=== PATIENT | male | born 1960 | race Caucasian/White ===

== ENCOUNTER 2020-08-12 13:13 | Outpatient (CLI) | payer OTHER ==
[2020-08-12] MEDS ORDERED: GADOBUTROL 7.5 MMOL/7.5 ML VIAL ONE (13:37)
[2020-08-12] MEDS ORDERED: BUFFERED LIDOCAINE 10 ML SYRINGE ONE (13:37)
[2020-08-12] MEDS ORDERED: iohexoL-240 10 ML VIAL IVP ONE (14:19)
[2020-08-12] MEDS ORDERED: GADOBUTROL 7.5 MMOL/7.5 ML VIAL IVP ONE (14:20)
[2020-08-12] MEDS ORDERED: BUFFERED LIDOCAINE 10 ML SYRINGE IU ONE (14:21)
--- NOTE | 2020-08-12 14:57 | XRAY Report ---
PROCEDURE: Arthrogram Needle Placement INDICATIONS: PAIN IN RT KNEE CONTRAST: CONTRAST: omnipaque/gada FLUORO TIME: FLUORO TIME: 0.19 min and NUMBER IMAGES: 2 TECHNIQUE: The indications, alternatives, benefits, risks, and complications of the procedure were explained to the patient. Written informed consent was obtained and placed in the chart. The knee was examined f luoroscopically, and a site chosen for knee joint injection. The skin was prepped and draped in the usual fashion and 1% Lidocaine infiltrated from the skin down to the articular surface. A hypodermic needle was then introduced into the joint and iodinated contrast media was instilled to confirm the intra-articular needle tip placement. This was followed by approximately 50 mL dilute solution of a gadolinium containing MR contrast agent. The needle was removed and a bandage was applied. An Alonso w rap was then applied around the knee joint to keep the contrast from collecting in the suprapatellar recess. The patient experienced no complications throughout the procedure and left the fluoroscopic suite in no apparent distress. FINDINGS: Single fluoroscopic spot image demonstrates intra-articular location to injected iodinated contrast. IMPRESSION: Successful fluoroscopically guided administration of dilute Gadolinium solution into the knee joint f or MR arthrogram. Reviewed by: Brooklyn Paul MD on 08/12/2020 2:56 PM PST Approved by: Brooklyn Paul MD on 08/12/2020 2:56 PM PST Station ID: [id number]
--- NOTE | 2020-08-12 16:23 | MRI Report ---
PROCEDURE: Arthrogram Knee RT INDICATIONS: PAIN IN RT KNEE CONTRAST: 50 cc of diluted intra-articular gadolinium contrast. TECHNIQUE: After the administration of 50 mL of dilute intra-articular Gadolinium contrast, sagittal T1 spin ech o with fat saturation and PD fast spin echo with fat saturation, coronal T1 spin echo with and withou t fat saturation, coronal T2 fast spin echo with fat saturation, axial PD fast spin echo with fat sat uration through the knee. COMPARISON: Right knee MR dated 08/10/2015 FINDINGS: Image quality: Diagnostic. Menisci: There is suggestion of prior partial meniscectomy involving body and posterior horn of media l meniscus with slightly truncated appearance of posterior horn. There is signal abnormality and cont rast extension in posterior horn remnant of medial meniscus superior articulating surface best seen o n series 401 image 13 suggestive of recurrent tear. There is no focal lateral meniscal tear. The meni scal root ligaments appear intact. Cruciate ligaments: The anterior and posterior cruciate ligaments appear intact. Medial structures: The medial collateral ligament appears intact. The posterior oblique ligament, s emimembranosus tendon insertions, and oblique popliteal ligament, and meniscocapsular junction appear intact. Visualized portions of the pes anserinus tendons appear normal. No abnormal bursal fluid. Lateral structures: The lateral collateral ligament, long and short heads of the biceps femoris tend on appear intact. The popliteus tendon appears normal; the popliteofibular ligament appears intact. The posterosuperior and anteroinferior popliteomeniscal fascicles appear intact. The arcuate and fa bellofibular ligaments appear intact, around the lateral inferior geniculate artery. Iliotibial band appears normal. Anterior structures: The quadriceps and patellar tendons appear intact. Patellar alignment is luis l. No femoral trochlear dysplasia or ventral trochlear prominence. No edema in the infrapatellar fa t pad. Bones and cartilage: Moderate medial femoral tibial compartment osteoarthritis and moderate to high-g rade chondromalacia is seen. Articulating cartilages and lateral femoral tibial compartment and watters lofemoral compartment are grossly intact. No fracture or dislocation. Joint space: There is no gross intra-articular loose body. Small popliteal cyst is seen and measures up to 2.5 x 2.4 x 7 cm in size. Normal appearing synovial plicae are incidentally noted. No suspici ous soft tissue enhancement. IMPRESSION: 1. Suggestion of prior partial meniscectomy involving body and posterior horn of medial meniscus. Sug gestion of recurrent tear involving posterior horn remnant of medial meniscus extending to superior a rticulating surface. No evidence of focal lateral meniscal tear. 2. Cruciate ligaments are intact. 3. Moderate medial femoral tibial compartment osteoarthritis and moderate to high-grade chondromalaci a. No fracture or dislocation. 4. No gross intra-articular loose body. Popliteal cyst as above. Reviewed by: Evan Enciso MD on 08/12/2020 4:22 PM PST Approved by: Evan Enciso MD on 08/12/2020 4:22 PM PST Station ID: [id number]
== END 2020-08-12 13:14 | disposition home or self-care (01) ==
LOC: DI 13:13
PROVIDERS: ATTEND Family Medicine
DX: M17.11 Unilateral primary osteoarthritis, right knee (principal); M94.261 Chondromalacia, right knee
CPT/HCPCS: 27369; 73722; 77002; A9585; Q9966

== ENCOUNTER 2022-08-27 17:05 | Outpatient (CLI) | payer OTHER ==
--- NOTE | 2022-08-28 10:39 | MRI Report ---
PROCEDURE: SHOULDER WO - RT INDICATIONS: RIGHT SHOULDER PAIN TECHNIQUE: Noncontrast oblique coronal T2 fast spin echo with fat saturation, oblique sagittal T1 spin echo and T2 fast spin echo with fat saturation, axial T1 spin echo and T2 fast spin echo with fat saturation t hrough the shoulder. COMPARISON: None. FINDINGS: Image quality: Excellent. Rotator cuff: Prior rotator cuff tendon repair is seen with postsurgical changes seen in shoulder sof t tissue. Moderate grade articular and bursal surface partial-thickness tear involving distal suprasp inatus at their insertion on humeral head extending to muscular tendinous junction. Distal infraspina tus tendinosis and low-grade articular surface partial-thickness tear is also seen. Distal subscapula ris tendinosis is noted. No full-thickness rotator cuff tendon rupture. Very mild supraspinatus muscl e atrophy is seen on sagittal images. Bones and bursae: There is expected postsurgical widening of acromioclavicular joint. Moderate to sev ere glenohumeral joint osteoarthritic changes are noted with joint space narrowing, subchondral scler osis and inferior margin osteophyte formation. Postsurgical changes are noted in the greater tuberosi ty of humeral head. There is moderate to large amount of subacromial subdeltoid bursal fluid. There i s suggestion of intra-articular loose body within subacromial subdeltoid bursa lateral to the greater tuberosity of humeral head measures 1.1 x 0.5 x 1.8 cm in size. Capsule and soft tissues: The glenohumeral ligaments are intact. Signal abnormality and contour irreg ularity involving inferior labrum at 5 to 7:00 position is seen suggestive of extensive inferior labr al tear. The long head of the biceps tendon appears thickened with intrasubstance T2 hyperintense sig nal. The rotator interval appears normal, without fibrosis. The coracohumeral ligament is normal in thickness. IMPRESSION: 1. Prior rotator cuff tendon repair with post surgical changes. No no gross marrow edema. No acute fr acture or dislocation. Expected postsurgical widening of acromioclavicular joint. Moderate to severe glenohumeral joint osteoarthritis. Moderate to large amount of subacromial subdeltoid bursal fluid wi th suggestion of intra-articular loose body as above. 2. Moderate grade articular and bursal surface partial-thickness tear involving distal supraspinatus extending to muscular tendinous junction. Low-grade articular surface partial-thickness tear involvin g distal infraspinatus. Distal subscapularis tendinosis. No full-thickness rotator cuff tendon ruptur e. Very mild supraspinatus muscle atrophy. 3. Suggestion of extensive inferior labral tear at 5 to 7:00 position. 4. Proximal intra-articular portion of long head of biceps tendinosis and low-grade intrasubstance pa rtial thickness tear. Reviewed by: Evan Enciso MD on 08/28/2022 10:38 AM PST Approved by: Evan Enciso MD on 08/28/2022 10:38 AM PST Station ID: [id number]
== END 2022-08-27 17:06 | disposition home or self-care (01) ==
LOC: DI 17:05
PROVIDERS: ATTEND Student in an Organized Health Care Education/Training Program
DX: M19.011 Primary osteoarthritis, right shoulder (principal); M75.111 Incomplete rotator cuff tear or rupture of right shoulder, not specified as traumatic; S46.111A Strain of muscle, fascia and tendon of long head of biceps, right arm, initial encounter; M25.411 Effusion, right shoulder

== ENCOUNTER 2022-12-10 14:26 | Emergency (ER) | payer OTHER ==
[2022-12-10] MEDS ORDERED: methylPREDNISolone SUCCINATE 125 MG/2 ML VIAL IVP STA (14:46)
[2022-12-10] MEDS ORDERED: diphenhydrAMINE INJ 50 MG/ML VIAL IVP STA (14:46)
[2022-12-10] MEDS ORDERED: EPINEPHrine 1 MG/ML AMP IM STA (14:47)
--- NOTE | 2022-12-10 14:52 | ED Physician Documentation ---
History of Present Illness - Stated complaint Stated Complaint: ALLERGIC REACTION - Chief complaint Chief Complaint: Allergic Rx - Additonal information Additional information: 62-year-old male presents to the emergency department concerned that he is having allergic reaction. He underwent shoulder surgery at [facility] this morning with GET. When he was released from surgery and they had arrived home the patient began having difficulty talking and swallowing. His noted that his uvula is swollen thus they present here. No history of previous allergies or allergic reactions. Patient denies any cardiac history. He is uncomfortable laying back. He has no tongue, lip swelling noted Review of Systems Constitutional: reports: Reviewed and negative Throat: reports: Oral lesions / sores, Other (Mostly swollen and edematous uvula) Cardiac: reports: Reviewed and negative Respiratory: reports: Reviewed and negative GI: reports: Reviewed and negative : reports: Reviewed and negative Skin: reports: Reviewed and negative Musculoskeletal: reports: Joint pain (Right shoulder held and immobilized fixation) PD PAST MEDICAL HISTORY - Past Medical History Cardiovascular: None Respiratory: None Endocrine/Autoimmune: None GI: None : None HEENT: None Psych: None Musculoskeletal: Osteoarthritis Derm: None - Past Surgical History Ortho: Shoulder arthroplasty, Arthroscopic surgery, Other Derm: Other - Present Medications Home Medications: Ambulatory Orders Medication Instructions Recorded Confirmed Ibuprofen [Motrin] 800 mg PO Q8H PRN 09/10/15 09/10/15 Loratadine [Claritin] 10 mg PO DAILY 09/10/15 09/10/15 Multivitamin [Multivitamins] 1 each PO 09/10/15 09/10/15 predniSONE [Deltasone] 40 mg PO DAILY 3 Days #6 tablet 12/10/22 - Allergies Allergies/Adverse Reactions: Allergies Allergy/AdvReac Type Severity Reaction Status Date / Time No Known Drug Allergies Allergy Verified 12/10/22 14:30 PD ED PE EXPANDED - General General: Alert, No acute distress - HEENT HEENT: PERRL, Other (Grossly swollen uvula which was edematous and approximately 3-4 cm long) - Neck Neck: Other (Currently able to swallow and tolerate oral secretions). No: No tenderness, Soft tissue TTP - Cardiac Cardiac: Regular Rate, Radial strong equal - Respiratory Respiratory: Clear to ausultation haydee. No: Distress, Labored - Neuro Neuro: Alert and Oriented X 3, CNII-XII intact Results - Vitals Vitals: Vital Signs - 24 hr 12/10/22 12/10/22 12/10/22 14:31 15:29 15:52 Temperature 37.0 C Heart Rate 80 96 95 Respiratory 18 15 16 Rate Blood Pressure 150/90 H 148/87 H O2 Saturation 96 100 12/10/22 12/10/22 12/10/22 16:00 16:29 17:00 Temperature Heart Rate 112 H 89 85 Respiratory 24 21 12 Rate Blood Pressure 150/87 H 150/87 H 132/87 H O2 Saturation 99 96 95 12/10/22 17:51 Temperature 36.6 C Heart Rate 76 Respiratory 11 L Rate Blood Pressure 127/82 H O2 Saturation 97 Oxygen O2 Source Room air - EKG (time done) 1454 EKG releavant findings:: EKG personally interpreted by author of this note. Relevant findings are: Rate: Rate (enter#) (94) Rhythm: NSR [place]: Normal Intervals: Normal [place]. No: Prolonged QT Ischemia: Normal ST segments, Q waves Compare to prior EKG: Old EKG unavailable Computer interpretation: Agree with computer - Labs Labs: Laboratory Tests 12/10/22 12/10/22 15:00 15:34 WBC 12.3 H RBC 5.54 Hgb 16.4 Hct 47.9 MCV 86.5 MCH 29.6 MCHC 34.2 RDW 13.1 Plt Count 206 MPV 9.9 Neut # (Auto) 11.1 H Lymph # (Auto) 0.9 L Snyder # (Auto) 0.3 Eos # (Auto) 0.0 Baso # (Auto) 0.0 Absolute Nucleated RBC 0.00 Nucleated RBC % 0.0 Sodium 135 Potassium 3.2 L Chloride 102 Carbon Dioxide 21 Anion Gap 12.0 BUN 18 Creatinine 1.1 Estimated GFR (MDRD) 68 L Glucose 215 H Calcium 9.5 Total Bilirubin 1.1 H AST 37 ALT 29 Alkaline Phosphatase 105 Total Protein 7.5 Albumin 4.3 Globulin 3.2 Albumin/Globulin Ratio 1.3 Lipase 46 PD Medical Decision Making - ED course Complexity details: reviewed results, re-evaluated patient, considered differential, d/w patient ED course: 62-year-old male presents emergency department for evaluation of difficulty breathing and swallowing in the setting of uvular edema. He did undergo right shoulder surgery at [facility] this morning with general endotracheal anesthesia. He was discharged home and when he went home he began to eat a donut. Shortly thereafter he was having difficulty swallowing and had pain in the back of his throat. His looked and saw that he had a swollen uvula that she drives him here. On presentation he had a painful swallow and a grossly enlarged uvula that was edematous and measured probably about 4 cm. The distal tip of it was beefy red. He however had no other findings of airway compromise such as tongue lip or throat swelling. He was immediately administered 0.3 mg of epinephrine IM as well as given 125 of methylprednisolone IV and 25 mg of Benadryl. He also received inhaled epinephrine 1mml 5 mL nebulization. On reevaluation the edema has begun to resolve. The patient whereas initially needed to sit upright was able to lie supine. On final evaluation at 1830 the patient appeared markedly better. Per his he is speaking normally. He still has pain with swallow. On reevaluation the edema of the uvula has reduced by about 75%. At this time he is stable for discharge home. I am going to administer an additional 3 days of prednisone. He is also advised several more days of Benadryl. It is not clear at this time whether the uvular edema was an allergic reaction to anesthesia or possibly related to trauma from the endotracheal tube. He is encouraged to discuss this with his primary care providers. As well as to discuss this ED event in the future should he have any other Anesthesia episodes. He is discharged home in stable and improved condition with usual emergent return precautions discussed Departure - Departure Disposition: 01 Home, Self Care Clinical Impression: Uvular swelling Condition: Stable Record reviewed to determine appropriate education?: Yes Prescriptions: predniSONE [Deltasone] 40 mg PO DAILY 3 Days #6 tablet Comments: As discussed at the bedside you came into the emergency department because you developed some sudden swelling of your uvula after you had anesthesia for your surgery on your shoulder today. Anesthesia did include an oral endotracheal tube. You did develop something called uvular edema. This may be as a side effect or reaction to the anesthesia. However it could also be related to trauma possibly from the endotracheal tube. We did give you a single dose of epinephrine here in the emergency department as well as a dose of IV steroids and Benadryl. On reevaluation your swelling has started to improve. You are now able to lay back in bed and speak normally. In order to help continue managing this I would like you to take Benadryl 25 mg once or twice daily for the next several days. I have sent a prescription for prednisone and oral steroid to the [facility] in [place]. You should take this every day for the next 3 days. I expect over the next several days that the pain and swelling gets progressively better. However if at any point you are having worsening symptoms, develop any fevers, have an inability to tolerate your oral secretions or are labored with breath in any way do not hesitate to return immediately to the ER
[2022-12-10] MEDS ORDERED: EPINEPHrine 1 MG/ML AMP INH STA (14:57)
--- NOTE | 2022-12-10 15:00 | XRAY Report ---
PROCEDURE: Chest 1 View X-Ray INDICATIONS: chest pain TECHNIQUE: One view of the chest was acquired. COMPARISON: None. FINDINGS: Surgical changes and devices: Partially visualized left shoulder arthroplasty. Lungs and pleura: No pleural effusions or pneumothorax. Lungs are clear. Mediastinum: Mediastinal contours appear normal. Heart size is enlarged. Elevator right hemidiaphra gm. Bones and chest wall: No suspicious bony lesions. Overlying soft tissues appear unremarkable. IMPRESSION: No acute cardiopulmonary process. Reviewed by: Brooklyn Paul MD on 12/10/2022 2:59 PM PDT Approved by: Brooklyn Paul MD on 12/10/2022 2:59 PM PDT Station ID: [id number]
[2022-12-10 15:05] LABS: BASOPHILS % (AUTO) 0.2 %; HCT - HEMATOCRIT 47.9 % (42.0-52.0); HGB - HEMOGLOBIN 16.4 g/dL (14.0-18.0); LYMPHOCYTES # (AUTO) 0.9 10^3/uL (1.5-3.5); LYMPHOCYTES % (AUTO) 7.1 %; MEAN CORPUSCULAR HEMOGLOBIN 29.6 pg (27.0-31.0); MEAN CORPUSCULAR HGB CONC 34.2 g/dL (32.0-36.0); MEAN CORPUSCULAR VOLUME 86.5 fL (80.0-94.0); MEAN PLATELET VOLUME 9.9 fL (7.4-11.4); MONOCYTES # (AUTO) 0.3 10^3/uL (0.0-1.0); MONOCYTES % (AUTO) 2.3 %; NEUTROPHILS # (AUTO) 11.1 10^3/uL (1.5-6.6); NEUTROPHILS % (AUTO) 89.9 %; PLT - PLATELET COUNT 206 10^3/uL (130-450); RED BLOOD COUNT 5.54 10^6/uL (4.70-6.10); RED CELL DISTRIBUTION WIDTH 13.1 % (12.0-15.0); WHITE BLOOD COUNT 12.3 x10^3/uL (4.8-10.8)
--- OUTSIDE RECORDS SUMMARY | 2022-12-10 15:16 | EXTERNAL MEDICAL SUMMARY RPT | Continuity of Care Document ---
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 ( unknown) Medications date description facility 2022-10-07 00:00 Fluticasone Propionate [facility] 2022-12-10 00:[address] [facility] 2022-12-10 00:[address] [facility] 2022-10-07 00:[address] [facility] 2022-10-07 00:[address] [facility] 2022-10-07 00:[address] [facility] 2022-12-10 00:[address] [facility] 2022-12-10 00:00 Hydrocodone-Acetaminophen [facility] Problems date description facility 2022-12-10 06:25 Primary osteoarthritis, [facility] 2022-12-10 06:42 Primary osteoarthritis, [facility] 2022-12-10 06:48 Primary osteoarthritis, [facility] 2022-12-10 09:03 Primary osteoarthritis, [facility] 2022-12-10 10:37 Primary osteoarthritis, [facility] 2022-12-10 11:12 Primary osteoarthritis, [facility] 2022-12-10 11:22 Primary osteoarthritis, [facility] 2022-12-10 12:27 Primary osteoarthritis, [facility] Procedures date description facility 2022-12-10 00:00 Interscalene block [facility] 2022-12-10 00:00 XR shoulder right, 2+ views [facility] 2022-12-10 00:00 Total Shoulder Arthroplasty (Ri ght) [facility] Results/Labs test date author facility value unit interpretation Result panel 1 (unknown) (no date) (unknown) (unknown) (no value) (units unknown) (unknown) (unknown) (no date) (unknown) (unknown) (past 8 hours): (uni ts unknown) (unknown) (unknown) (no date) (unknown) (unknown) [id number] (units unknown) (unknown) (unknown) (no date) (unknown) (unknown) 12/10/22 (units unknown) (unknown) (unknown) (no date) (unknown) (unknown) 06:55 (units unknown) (unknown) (unknown) (no date) (unknown) (unknown) 62 yo M RHD he re today for right shoulder replacement. He states his symptoms (units unknown) (unknown) (unknown) (no date) (unknown) (unknown) Age/Sex: 62 / M (uni ts unknown) (unknown) (unknown) (no date) (unknown) (unknown) Allergies (units unknown) (unknown) (unknown) (no date) (unknown) (unknown) Allergy/AdvRea c Type Severity Reaction Status Date / Time (units unknown) (unknown) (unknown) (no date) (unknown) (unknown) Arthritis of r ight knee (units unknown) (unknown) (unknown) (no date) (unknown) (unknown) Blood Pressure 134/8 4 (units unknown) (unknown) (unknown) (no date) (unknown) (unknown) COVID-19 virus infection (2021) (units unknown) (unknown) (unknown) (no date) (unknown) (unknown) Chief complain t: Right TSA (units unknown) (unknown) (unknown) (no date) (unknown) (unknown) : 2 Acct:[id number] (units unknown) (unknown) (unknown) (no date) (unknown) (unknown) Date Patient S een: 12/10/22 (units unknown) (unknown) (unknown) (no date) (unknown) (unknown) Date of Servic e: 12/10/22 (units unknown) (unknown) (unknown) (no date) (unknown) (unknown) Exam (units unknown) (unknown) (unknown) (no date) (unknown) (unknown) History + Phys ical Report (units unknown) (unknown) (unknown) (no date) (unknown) (unknown) History of Pre sent Illness (units unknown) (unknown) (unknown) (no date) (unknown) (unknown) History of ank le surgery (units unknown) (unknown) (unknown) (no date) (unknown) (unknown) History (units unknown) (unknown) (unknown) (no date) (unknown) (unknown) Home Medicatio ns and Allergies (units unknown) (unknown) (unknown) (no date) (unknown) (unknown) Home Medications (un its unknown) (unknown) (unknown) (no date) (unknown) (unknown) Hx of arthrosc opy of left knee (units unknown) (unknown) (unknown) (no date) (unknown) (unknown) Hx of arthrosc opy of right knee (units unknown) (unknown) (unknown) (no date) (unknown) (unknown) Hx of plastic surger y (units unknown) (unknown) (unknown) (no date) (unknown) (unknown) Hx of repair o f right rotator cuff (units unknown) (unknown) (unknown) (no date) (unknown) (unknown) [address] [address] (units unknown) (unknown) (unknown) (no date) (unknown) (unknown) Medical Histor y (Updated 10/07/22 @ 13:11 by Zita Armas RN) (units unknown) (unknown) (unknown) (no date) (unknown) (unknown) Medication Instructions Recorded Confirmed Type (units unknown) (unknown) (unknown) (no date) (unknown) (unknown) Meds (units unknown) (unknown) (unknown) (no date) (unknown) (unknown) Narrative: (units unknown) (unknown) (unknown) (no date) (unknown) (unknown) No Known Drug Allergies Allergy Verified 12/10/22 06:48 (units unknown) (unknown) (unknown) (no date) (unknown) (unknown) Osteoarthritis (unit s unknown) (unknown) (unknown) (no date) (unknown) (unknown) Oxygen Deliver y Method Room Air (units unknown) (unknown) (unknown) (no date) (unknown) (unknown) PFSH (units unknown) (unknown) (unknown) (no date) (unknown) (unknown) Patient: Rudolph Pickering Jr MR#: M (units unknown) (unknown) (unknown) (no date) (unknown) (unknown) Provider: Drew Diaz MD (units unknown) (unknown) (unknown) (no date) (unknown) (unknown) Pulse Oximetry 97 (u nits unknown) (unknown) (unknown) (no date) (unknown) (unknown) Pulse Rate 73 (units unknown) (unknown) (unknown) (no date) (unknown) (unknown) Respiratory Rate 16 (units unknown) (unknown) (unknown) (no date) (unknown) (unknown) S/P right unicompartmental knee replacement (10/10/20) (units unknown) (unknown) (unknown) (no date) (unknown) (unknown) Seasonal allergies ( units unknown) (unknown) (unknown) (no date) (unknown) (unknown) Signed By: (units unknown) (unknown) (unknown) (no date) (unknown) (unknown) Sleep apnea (units unknown) (unknown) (unknown) (no date) (unknown) (unknown) Smoking Status : Never smoker (units unknown) (unknown) (unknown) (no date) (unknown) (unknown) Social History (units unknown) (unknown) (unknown) (no date) (unknown) (unknown) Status post keron mbar microdiscectomy (units unknown) (unknown) (unknown) (no date) (unknown) (unknown) Surgical Histo ry (Updated 10/07/22 @ 13:13 by Zita Armas RN) (units unknown) (unknown) (unknown) (no date) (unknown) (unknown) Temperature 97.2 F L (units unknown) (unknown) (unknown) (no date) (unknown) (unknown) Time Patient S een: 07:50 (units unknown) (unknown) (unknown) (no date) (unknown) (unknown) Vital Signs (units unknown) (unknown) (unknown) (no date) (unknown) (unknown) acetaminophen 500 mg tablet 1,000 mg PO DAILY PRN Pain 10/07/22 10/07/22 History (units unknown) (unknown) (unknown) (no date) (unknown) (unknown) alcohol intake : current (units unknown) (unknown) (unknown) (no date) (unknown) (unknown) fluticasone propionate 50 1 spray intranasal BID PRN 10/07/22 10/07/22 History (units unknown) (unknown) (unknown) (no date) (unknown) (unknown) have become wo rse over the last few weeks. (units unknown) (unknown) (unknown) (no date) (unknown) (unknown) household memb ers: spouse (units unknown) (unknown) (unknown) (no date) (unknown) (unknown) ibuprofen 400 mg tablet 800 mg PO DAILY 10/10/20 12/10/22 History (units unknown) (unknown) (unknown) (no date) (unknown) (unknown) loratadine 10 mg tablet 10 mg PO DAILY 10/07/22 10/07/22 History (units unknown) (unknown) (unknown) (no date) (unknown) (unknown) mcg/actuation nasal seasonal allergies (units unknown) (unknown) (unknown) (no date) (unknown) (unknown) sildenafil 50 mg tablet 50 mg PO DAILY PRN Sexual Activity 10/07/22 12/10/22 (units unknown) (unknown) (unknown) (no date) (unknown) (unknown) spray,suspension (un its unknown) (unknown) Result panel 2 (unknown) (no date) (unknown) (unknown) (no value) (units unknown) (unknown) (unknown) (no date) (unknown) (unknown) (past 8 hours): (uni ts unknown) (unknown) (unknown) (no date) (unknown) (unknown) [id number] (units unknown) (unknown) (unknown) (no date) (unknown) (unknown) 12/10/22 0756 (units unknown) (unknown) (unknown) (no date) (unknown) (unknown) 12/10/22 (units unknown) (unknown) (unknown) (no date) (unknown) (unknown) 06:55 (units unknown) (unknown) (unknown) (no date) (unknown) (unknown) 62 yo M RHD he re today for right shoulder replacement. He states his symptoms (units unknown) (unknown) (unknown) (no date) (unknown) (unknown) 62-year-old ma le with right shoulder primary glenohumeral arthritis (units unknown) (unknown) (unknown) (no date) (unknown) (unknown) Age/Sex: 62 / M (uni ts unknown) (unknown) (unknown) (no date) (unknown) (unknown) Allergies (units unknown) (unknown) (unknown) (no date) (unknown) (unknown) Allergy/AdvRea c Type Severity Reaction Status Date / Time (units unknown) (unknown) (unknown) (no date) (unknown) (unknown) Arthritis of r ight knee (units unknown) (unknown) (unknown) (no date) (unknown) (unknown) Assessment + P cedirc narrative: (units unknown) (unknown) (unknown) (no date) (unknown) (unknown) Assessment + Plan (u nits unknown) (unknown) (unknown) (no date) (unknown) (unknown) Assessment: 62-year-old male with right shoulder primary glenohumeral arthritis (units unknown) (unknown) (unknown) (no date) (unknown) (unknown) Blood Pressure 134/8 4 (units unknown) (unknown) (unknown) (no date) (unknown) (unknown) COVID-19 virus infection (2021) (units unknown) (unknown) (unknown) (no date) (unknown) (unknown) Cardiovascular : Palpable peripheral pulses extremities are warm and well (units unknown) (unknown) (unknown) (no date) (unknown) (unknown) Chief complain t: Right TSA (units unknown) (unknown) (unknown) (no date) (unknown) (unknown) : 2 Acct:[id number] (units unknown) (unknown) (unknown) (no date) (unknown) (unknown) Date Patient S een: 12/10/22 (units unknown) (unknown) (unknown) (no date) (unknown) (unknown) Date of Servic e: 12/10/22 (units unknown) (unknown) (unknown) (no date) (unknown) (unknown) ECG (units unknown) (unknown) (unknown) (no date) (unknown) (unknown) Exam Narrative: (uni ts unknown) (unknown) (unknown) (no date) (unknown) (unknown) Exam (units unknown) (unknown) (unknown) (no date) (unknown) (unknown) HEENT: Head atraumatic eyes anicteric moist mucous membranes (units unknown) (unknown) (unknown) (no date) (unknown) (unknown) He agreed and expressed understanding with these risks and wished to go forward (units unknown) (unknown) (unknown) (no date) (unknown) (unknown) History + Phys ical Report (units unknown) (unknown) (unknown) (no date) (unknown) (unknown) History of Pre sent Illness (units unknown) (unknown) (unknown) (no date) (unknown) (unknown) History of ank le surgery (units unknown) (unknown) (unknown) (no date) (unknown) (unknown) History (units unknown) (unknown) (unknown) (no date) (unknown) (unknown) Home Medicatio ns and Allergies (units unknown) (unknown) (unknown) (no date) (unknown) (unknown) Home Medications (un its unknown) (unknown) (unknown) (no date) (unknown) (unknown) Hx of arthrosc opy of left knee (units unknown) (unknown) (unknown) (no date) (unknown) (unknown) Hx of arthrosc opy of right knee (units unknown) (unknown) (unknown) (no date) (unknown) (unknown) Hx of plastic surger y (units unknown) (unknown) (unknown) (no date) (unknown) (unknown) Hx of repair o f right rotator cuff (units unknown) (unknown) (unknown) (no date) (unknown) (unknown) Impression: (units unknown) (unknown) (unknown) (no date) (unknown) (unknown) [address] [address] (units unknown) (unknown) (unknown) (no date) (unknown) (unknown) Medical Histor y (Updated 10/07/22 @ 13:11 by Zita Armas RN) (units unknown) (unknown) (unknown) (no date) (unknown) (unknown) Medication Instructions Recorded Confirmed Type (units unknown) (unknown) (unknown) (no date) (unknown) (unknown) Meds (units unknown) (unknown) (unknown) (no date) (unknown) (unknown) Musculoskeleta l: Exam of right upper extremity demonstrates limited range of (units unknown) (unknown) (unknown) (no date) (unknown) (unknown) Narrative (units unknown) (unknown) (unknown) (no date) (unknown) (unknown) Narrative: (units unknown) (unknown) (unknown) (no date) (unknown) (unknown) Neuro: No acut e deficits (units unknown) (unknown) (unknown) (no date) (unknown) (unknown) No Known Drug Allergies Allergy Verified 12/10/22 06:48 (units unknown) (unknown) (unknown) (no date) (unknown) (unknown) Objective (units unknown) (unknown) (unknown) (no date) (unknown) (unknown) Osteoarthritis (unit s unknown) (unknown) (unknown) (no date) (unknown) (unknown) Oxygen Deliver y Method Room Air (units unknown) (unknown) (unknown) (no date) (unknown) (unknown) PFSH (units unknown) (unknown) (unknown) (no date) (unknown) (unknown) Patient: Raheel CoxRudolph Cardenas MR#: M (units unknown) (unknown) (unknown) (no date) (unknown) (unknown) Plan: As bret sandoval previously in clinic we will plan to go ahead with a (units unknown) (unknown) (unknown) (no date) (unknown) (unknown) Provider: Drew Diaz MD (units unknown) (unknown) (unknown) (no date) (unknown) (unknown) Psychiatric: Appropriate mood and affect (units unknown) (unknown) (unknown) (no date) (unknown) (unknown) Pulse Oximetry 97 (u nits unknown) (unknown) (unknown) (no date) (unknown) (unknown) Pulse Rate 73 (units unknown) (unknown) (unknown) (no date) (unknown) (unknown) ROS: Yes All s ystems reviewed with the patient and are negative except as (units unknown) (unknown) (unknown) (no date) (unknown) (unknown) Respiratory Rate 16 (units unknown) (unknown) (unknown) (no date) (unknown) (unknown) Respiratory: Breathing comfortably on room air (units unknown) (unknown) (unknown) (no date) (unknown) (unknown) Review of Systems (u nits unknown) (unknown) (unknown) (no date) (unknown) (unknown) S/P right unicompartmental knee replacement (10/10/20) (units unknown) (unknown) (unknown) (no date) (unknown) (unknown) Seasonal allergies ( units unknown) (unknown) (unknown) (no date) (unknown) (unknown) Signed By:<Electronically signed by Drew Diaz MD> (units unknown) (unknown) (unknown) (no date) (unknown) (unknown) Sleep apnea (units unknown) (unknown) (unknown) (no date) (unknown) (unknown) Smoking Status : Never smoker (units unknown) (unknown) (unknown) (no date) (unknown) (unknown) Social History (units unknown) (unknown) (unknown) (no date) (unknown) (unknown) Status post keron mbar microdiscectomy (units unknown) (unknown) (unknown) (no date) (unknown) (unknown) Surgical Histo ry (Updated 10/07/22 @ 13:13 by Zita Armas RN) (units unknown) (unknown) (unknown) (no date) (unknown) (unknown) Temperature 97.2 F L (units unknown) (unknown) (unknown) (no date) (unknown) (unknown) The right shou lder was marked with my initials and consent was confirmed. (units unknown) (unknown) (unknown) (no date) (unknown) (unknown) Time Patient S een: 07:50 (units unknown) (unknown) (unknown) (no date) (unknown) (unknown) Vital Signs (units unknown) (unknown) (unknown) (no date) (unknown) (unknown) We again discu ssed risks and benefits of surgery as previously done in clinic. (units unknown) (unknown) (unknown) (no date) (unknown) (unknown) acetaminophen 500 mg tablet 1,000 mg PO DAILY PRN Pain 10/07/22 10/07/22 History (units unknown) (unknown) (unknown) (no date) (unknown) (unknown) alcohol intake : current (units unknown) (unknown) (unknown) (no date) (unknown) (unknown) anatomic right total shoulder arthroplasty. If in the case his rotator cuff (units unknown) (unknown) (unknown) (no date) (unknown) (unknown) appears to be deficient we will switch to a reverse total shoulder arthroplasty. (units unknown) (unknown) (unknown) (no date) (unknown) (unknown) fluticasone propionate 50 1 spray intranasal BID PRN 10/07/22 10/07/22 History (units unknown) (unknown) (unknown) (no date) (unknown) (unknown) have become wo rse over the last few weeks. He denies any recent nausea, (units unknown) (unknown) (unknown) (no date) (unknown) (unknown) household memb ers: spouse (units unknown) (unknown) (unknown) (no date) (unknown) (unknown) ibuprofen 400 mg tablet 800 mg PO DAILY 10/10/20 12/10/22 History (units unknown) (unknown) (unknown) (no date) (unknown) (unknown) loratadine 10 mg tablet 10 mg PO DAILY 10/07/22 10/07/22 History (units unknown) (unknown) (unknown) (no date) (unknown) (unknown) mcg/actuation nasal seasonal allergies (units unknown) (unknown) (unknown) (no date) (unknown) (unknown) motion is note d at my previous clinic note. Minimal pain to palpation about the (units unknown) (unknown) (unknown) (no date) (unknown) (unknown) nerve distribu tions. 2+ radial pulse with brisk capillary refill less than 2 (units unknown) (unknown) (unknown) (no date) (unknown) (unknown) no other compl aints at this time. (units unknown) (unknown) (unknown) (no date) (unknown) (unknown) otherwise documented (units unknown) (unknown) (unknown) (no date) (unknown) (unknown) perfused (units unknown) (unknown) (unknown) (no date) (unknown) (unknown) seconds. (units unknown) (unknown) (unknown) (no date) (unknown) (unknown) shoulder. No l esions. Sensation intact to light touch in median, radial, ulnar (units unknown) (unknown) (unknown) (no date) (unknown) (unknown) sildenafil 50 mg tablet 50 mg PO DAILY PRN Sexual Activity 10/07/22 12/10/22 (units unknown) (unknown) (unknown) (no date) (unknown) (unknown) spray,suspension (un its unknown) (unknown) (unknown) (no date) (unknown) (unknown) vomiting, diar rose, fevers, chills or any other constitutional symptoms. He has (units unknown) (unknown) (unknown) (no date) (unknown) (unknown) with surgery. All of his questions were answered fully to his satisfaction. (units unknown) (unknown) Result panel 3 (unknown) (no date) (unknown) (unknown) (no value) (units unknown) (unknown) (unknown) (no date) (unknown) (unknown) (without compr omising the technical results or length of the procedure) without (units unknown) (unknown) (unknown) (no date) (unknown) (unknown) [id number] (units unknown) (unknown) (unknown) (no date) (unknown) (unknown) 12/10/22 1053 (units unknown) (unknown) (unknown) (no date) (unknown) (unknown) A standard deltopectoral incision was made. Skin flaps were made. The cephalic (units unknown) (unknown) (unknown) (no date) (unknown) (unknown) Age/Sex: 62 / M (uni ts unknown) (unknown) (unknown) (no date) (unknown) (unknown) Anesthesia Typ e: General (units unknown) (unknown) (unknown) (no date) (unknown) (unknown) Departmental Shipping Clerk: Bam Cerda (units unknown) (unknown) (unknown) (no date) (unknown) (unknown) Assisting participation: This operation could not have been safely performed (units unknown) (unknown) (unknown) (no date) (unknown) (unknown) Attention was then turned to the glenoid. After retracting the humeral head (units unknown) (unknown) (unknown) (no date) (unknown) (unknown) Blood products transfused: none (units unknown) (unknown) (unknown) (no date) (unknown) (unknown) Click Yes if Unassisted: No (units unknown) (unknown) (unknown) (no date) (unknown) (unknown) Closure Type: primar y (units unknown) (unknown) (unknown) (no date) (unknown) (unknown) Condition: stable (u nits unknown) (unknown) (unknown) (no date) (unknown) (unknown) [employer] [id number] (units unknown) (unknown) (unknown) (no date) (unknown) (unknown) : 2 Acct:[id number] (units unknown) (unknown) (unknown) (no date) (unknown) (unknown) Date of Servic e: 12/10/22 (units unknown) (unknown) (unknown) (no date) (unknown) (unknown) Date of proced ure: 12/10/22 (units unknown) (unknown) (unknown) (no date) (unknown) (unknown) Disposition: PACU (u nits unknown) (unknown) (unknown) (no date) (unknown) (unknown) Estimated Bloo d Loss (mL): 50 (units unknown) (unknown) (unknown) (no date) (unknown) (unknown) Findings: Osteoarthritis of the glenoid and humeral head as noted on (units unknown) (unknown) (unknown) (no date) (unknown) (unknown) Findings: (units unknown) (unknown) (unknown) (no date) (unknown) (unknown) Indications: T his is a active 62-year-old male who has primary glenohumeral (units unknown) (unknown) (unknown) (no date) (unknown) (unknown) Indications: (units unknown) (unknown) (unknown) (no date) (unknown) (unknown) [place] [address] (units unknown) (unknown) (unknown) (no date) (unknown) (unknown) Loupes were pa ssed through drill holes in the bicipital groove. The Size 3 (units unknown) (unknown) (unknown) (no date) (unknown) (unknown) Medium viscosi ty cement was mixed and the drill holes were completely dried. A (units unknown) (unknown) (unknown) (no date) (unknown) (unknown) Operative Date/Time/Diagnoses (units unknown) (unknown) (unknown) (no date) (unknown) (unknown) Operative Note (unit s unknown) (unknown) (unknown) (no date) (unknown) (unknown) Operative Notes (uni ts unknown) (unknown) (unknown) (no date) (unknown) (unknown) Operative note : Patient was seen in the preoperative holding unit. The correct (units unknown) (unknown) (unknown) (no date) (unknown) (unknown) Osteophytes we re removed using combination of rongeur and osteotome. The (units unknown) (unknown) (unknown) (no date) (unknown) (unknown) Patient was aw oken from anesthesia and brought back to the postoperative (units unknown) (unknown) (unknown) (no date) (unknown) (unknown) Patient: Rudolph Pickering Jr MR#: M (units unknown) (unknown) (unknown) (no date) (unknown) (unknown) Plan for aftercare: (units unknown) (unknown) (unknown) (no date) (unknown) (unknown) Post-op diagno sis: same (units unknown) (unknown) (unknown) (no date) (unknown) (unknown) Post-operative (unit s unknown) (unknown) (unknown) (no date) (unknown) (unknown) Postoperative instructions: Sling to remain on for 6 weeks. No external (units unknown) (unknown) (unknown) (no date) (unknown) (unknown) Pre-op diagnos is: Right glenohumeral arthritis (units unknown) (unknown) (unknown) (no date) (unknown) (unknown) Procedure + Clinicians (units unknown) (unknown) (unknown) (no date) (unknown) (unknown) Procedure in detail: (units unknown) (unknown) (unknown) (no date) (unknown) (unknown) Procedure: (units unknown) (unknown) (unknown) (no date) (unknown) (unknown) Prosthetic dev ices, grafts, tissues, transplants, or devices: (units unknown) (unknown) (unknown) (no date) (unknown) (unknown) Provider: Drew Diaz MD (units unknown) (unknown) (unknown) (no date) (unknown) (unknown) Right anatomic total shoulder arthroplasty (units unknown) (unknown) (unknown) (no date) (unknown) (unknown) Same procedure as scheduled: Yes (units unknown) (unknown) (unknown) (no date) (unknown) (unknown) Signed By:<Electronically signed by Drew Diaz MD> (units unknown) (unknown) (unknown) (no date) (unknown) (unknown) Simpliciti Marva r head size 50 x 19 (units unknown) (unknown) (unknown) (no date) (unknown) (unknown) Simpliciti Nuc leus Size 3 (units unknown) (unknown) (unknown) (no date) (unknown) (unknown) Specimen(s): n one sent (units unknown) (unknown) (unknown) (no date) (unknown) (unknown) Surgeon: Drew Diaz (units unknown) (unknown) (unknown) (no date) (unknown) (unknown) The coracoacro mial ligament was left intact. The shoulder was then dislocated. (units unknown) (unknown) (unknown) (no date) (unknown) (unknown) The patient wa s brought back to the operating room and placed supine on the (units unknown) (unknown) (unknown) (no date) (unknown) (unknown) The skin was c losed with 2-0 PDS and joaquina followed by Aquacel dressing. (units unknown) (unknown) (unknown) (no date) (unknown) (unknown) Time of proced ure: 10:47 (units unknown) (unknown) (unknown) (no date) (unknown) (unknown) [employer]plants (un its unknown) (unknown) (unknown) (no date) (unknown) (unknown) Turning back t o the humerus, the humeral head was delivered and 3 seperate Nice (units unknown) (unknown) (unknown) (no date) (unknown) (unknown) all polyethyle ne pegged glenoid was then selected, and cemented into the (units unknown) (unknown) (unknown) (no date) (unknown) (unknown) and subcoracoi d space to release adhesions. The conjoined tendon was identified (units unknown) (unknown) (unknown) (no date) (unknown) (unknown) and the axilla ry nerve was palpated and continuous using the tug test. It was (units unknown) (unknown) (unknown) (no date) (unknown) (unknown) antibiotics we re given. The right shoulder was then prepped with the standard (units unknown) (unknown) (unknown) (no date) (unknown) (unknown) arthritis and a distant history of a rotator cuff repair. Symptoms have been (units unknown) (unknown) (unknown) (no date) (unknown) (unknown) central hole f ollowed by impaction. (units unknown) (unknown) (unknown) (no date) (unknown) (unknown) discussed the risk of failure of surgery and the need for revision surgery as (units unknown) (unknown) (unknown) (no date) (unknown) (unknown) ethibond. The subscapularis was then repaired using a modified racking hitch (units unknown) (unknown) (unknown) (no date) (unknown) (unknown) gentle pendulu m steve. Okay to shower over the Aquacel dressing. If any (units unknown) (unknown) (unknown) (no date) (unknown) (unknown) given. (units unknown) (unknown) (unknown) (no date) (unknown) (unknown) glenoid. (units unknown) (unknown) (unknown) (no date) (unknown) (unknown) head was place d. The shoulder was then reduced and again brought through range (units unknown) (unknown) (unknown) (no date) (unknown) (unknown) humeral head c ut was made using the patient's [place] version. The head was (units unknown) (unknown) (unknown) (no date) (unknown) (unknown) including inje ctions, physical therapy, anti-inflammatories and activity (units unknown) (unknown) (unknown) (no date) (unknown) (unknown) infection, ble eding, damage to internal structures including nerves. We also (units unknown) (unknown) (unknown) (no date) (unknown) (unknown) instruments, p erin exposure, graft prep, and manipulation of tissue. (units unknown) (unknown) (unknown) (no date) (unknown) (unknown) measured and a guide for size 3 simpliciti humeral head was used to drill a (units unknown) (unknown) (unknown) (no date) (unknown) (unknown) medically nece ssary for proper positioning, retraction and manipulation of (units unknown) (unknown) (unknown) (no date) (unknown) (unknown) modification. After extensive discussion in clinic, they wished to go forward (units unknown) (unknown) (unknown) (no date) (unknown) (unknown) nerve. The coracohumeral ligament was released at the base of the coracoid. (units unknown) (unknown) (unknown) (no date) (unknown) (unknown) nucleus was th en impacted into the humerus and a size 52 x 19 stemless humeral (units unknown) (unknown) (unknown) (no date) (unknown) (unknown) of motion and was felt to be stable. The interval was then closed using #2 (units unknown) (unknown) (unknown) (no date) (unknown) (unknown) of the subscap ularis were identified and tied off using 0-Vicryl. The biceps (units unknown) (unknown) (unknown) (no date) (unknown) (unknown) operating tabl e. He underwent smooth endotracheal intubation. All prominences (units unknown) (unknown) (unknown) (no date) (unknown) (unknown) posteriorly, r elease of the capsule and labrum was performed. Central guidewire (units unknown) (unknown) (unknown) (no date) (unknown) (unknown) preoperative i maging and under direct visualization, and an intact rotator cuff (units unknown) (unknown) (unknown) (no date) (unknown) (unknown) present for ye ars, insidious onset. Patient has failed conservative therapy (units unknown) (unknown) (unknown) (no date) (unknown) (unknown) protected thro ughout the remainder of the case. A brown retractor was placed (units unknown) (unknown) (unknown) (no date) (unknown) (unknown) recovery unit without issue. They were placed into a sling. (units unknown) (unknown) (unknown) (no date) (unknown) (unknown) release of the subscapularis was performed with protection of the axillary (units unknown) (unknown) (unknown) (no date) (unknown) (unknown) remainder of t he case. Sharp dissection was made along the deltoid, subacromial (units unknown) (unknown) (unknown) (no date) (unknown) (unknown) right shoulder was identified and marked with my initials. Again we discussed (units unknown) (unknown) (unknown) (no date) (unknown) (unknown) risks and wish ed to go forward with surgery. (units unknown) (unknown) (unknown) (no date) (unknown) (unknown) rotation past neutral for 6 weeks. Okay for sling to come off for shower and (units unknown) (unknown) (unknown) (no date) (unknown) (unknown) rotator cuff w as noted to be intact. Using an oscillating saw a conservative (units unknown) (unknown) (unknown) (no date) (unknown) (unknown) sheath, and ta tammy from its origin on the glenoid and tied into the pectoralis (units unknown) (unknown) (unknown) (no date) (unknown) (unknown) sterile prepar ation and draping. A time-out was then performed in my initials (units unknown) (unknown) (unknown) (no date) (unknown) (unknown) subscapularis was tagged with an Ethibond suture. A 360 degree circumferential (units unknown) (unknown) (unknown) (no date) (unknown) (unknown) tendon for a s olid tenodesis. We then began a subscapularis peel. The (units unknown) (unknown) (unknown) (no date) (unknown) (unknown) tendon was kati ntified in the bicipital groove. This was released from its (units unknown) (unknown) (unknown) (no date) (unknown) (unknown) tendon. The an terior circumflex artery and associated veins on the lower border (units unknown) (unknown) (unknown) (no date) (unknown) (unknown) the assistance of a skilled rn surgical. The rn surgical was (units unknown) (unknown) (unknown) (no date) (unknown) (unknown) the risks and benefits of surgery and they wished to go forward with surgery. (units unknown) (unknown) (unknown) (no date) (unknown) (unknown) underneath the deltoid muscle and a darach retractor underneath the conjoint (units unknown) (unknown) (unknown) (no date) (unknown) (unknown) vein was ident ified and retracted laterally. This was protected throughout the (units unknown) (unknown) (unknown) (no date) (unknown) (unknown) visit in 2 weeks. (u nits unknown) (unknown) (unknown) (no date) (unknown) (unknown) was placed. Th e glenoid was then reamed and a size medium 40. Peripheral holes (units unknown) (unknown) (unknown) (no date) (unknown) (unknown) water gets und erneath the dressing, remove the dressing. First postoperative (units unknown) (unknown) (unknown) (no date) (unknown) (unknown) well as the ri sk of anesthesia. The patient expressed understanding with these (units unknown) (unknown) (unknown) (no date) (unknown) (unknown) were again kati ntified on the correct shoulder. 1 g of IV tranexamic acid was (units unknown) (unknown) (unknown) (no date) (unknown) (unknown) were drilled. At this point dilute Betadine wash was performed for 2 minutes. (units unknown) (unknown) (unknown) (no date) (unknown) (unknown) were padded an d they were placed into the beach chair position. Intravenous (units unknown) (unknown) (unknown) (no date) (unknown) (unknown) with niece luz pes. The deltopectoral interval was then closed with #2 Ethibond. (units unknown) (unknown) (unknown) (no date) (unknown) (unknown) with surgery. Risks and benefits were described including the risk of (units unknown) (unknown) Social History date description facility 2022-12-10 00:00 [facility] date measurement value units 2022-12-10 00:00 BMI 29.5 kg/m2 2022-12-10 00:00 BP_diastolic 100 mmHg 2022-12-10 00:00 BP_systolic 154 mmHg 2022-12-10 00:00 heart_rate 82 /min 2022-12-10 00:00 height_metric 187.96 cm 2022-12-10 00:00 height_standard 74 in 2022-12-10 00:00 o2_saturation 96 % 2022-12-10 00:00 respiration_rate 16 /min 2022-12-10 00:00 temperature_metric 35.78 C 2022-12-10 00:00 temperature_standard 96.4 F 2022-12-10 00:00 weight_metric 104.32 kg 2022-12-10 00:00 weight_standard 229.99 lb
[2022-12-10 15:59] LABS: ALBUMIN 4.3 g/dL (3.2-5.5); ALBUMIN/GLOBULIN RATIO 1.3 (1.0-2.2); BILIRUBIN,TOTAL 1.1 mg/dL (0.2-1.0); CALCIUM 9.5 mg/dL (8.5-10.3); CREATININE 1.1 mg/dL (0.6-1.2); POTASSIUM 3.2 mmol/L (3.5-5.0); TOTAL PROTEIN 7.5 g/dL (6.7-8.2)
[2022-12-10] MEDS ORDERED: HYDROmorphone 1 MG/ML CARPUJECT IVP STA (17:08)
[2022-12-10] MEDS ORDERED: predniSONE 20 MG TABLET PO STA (18:27)
[2022-12-10 18:42] VITALS: BP 120/81
== END 2022-12-10 18:41 | disposition home or self-care (01) ==
LOC: ED 14:26
DX: K13.79 Other lesions of oral mucosa (principal)
CPT/HCPCS: 36415; 71045; 80053; 83690; 85025; 93005; 94640; 96372; 96374; 96375; 99284; J1170; J1200; J7512